=== PATIENT | male | born 1965 | race Caucasian/White ===

== ENCOUNTER 2021-03-27 08:49 | Emergency (ER) | payer MEDICARE | END 2021-03-27 15:37 | disposition home or self-care (01) | LOC: ERS 08:49 | DX: K44.9 Diaphragmatic hernia without obstruction or gangrene (principal); R05 Cough; F17.220 Nicotine dependence, chewing tobacco, uncomplicated | CPT/HCPCS: 71046 ==

== ENCOUNTER 2023-10-22 10:23 | Outpatient (CLI) | payer MEDICARE | END 2023-10-22 10:24 | disposition home or self-care (01) | LOC: RAD 10:23 | PROVIDERS: ATTEND Family Medicine | DX: J44.1 Chronic obstructive pulmonary disease with (acute) exacerbation (principal); Z87.09 Personal history of other diseases of the respiratory system; J98.4 Other disorders of lung | CPT/HCPCS: 71046 ==